=== PATIENT | male | born 1960 | race Caucasian/White ===

== ENCOUNTER 2025-05-02 15:40 | Emergency (ER) | payer BC, SELFPAY ==
--- NOTE | ~2025-05-02 | XR_ITS ---
EXAMINATION: XR CHEST CLINICAL INFORMATION: Coughing. Pneuomnia? COMPARISON: None available. TECHNIQUE: 2 views of the chest were obtained. FINDINGS: No significant abnormality is noted involving the heart, lungs, mediastinum, bony thorax or soft tissues. XR/XR chest 2V IMPRESSION: No acute disease Electronically signed by: Reagan Jordan MD 05/02/2025 04:15 PM [facility]
[2025-05-02 15:54] VITALS: BP 144/76; PULSE 85; RESP 20; TEMP 36.4; O2SAT 95; BMI 40.0
--- NOTE | 2025-05-02 15:59 | ED.GENADULT ---
HPI - General Adult General Chief complaint: Upper Respiratory Symptoms Stated complaint: ?URI/Fatigue Time Seen by Provider: 05/02/25 16:57 Source: patient Mode of arrival: ambulatory Limitations: no limitations History of Present Illness ED Provider: Leeroy Gallagher HPI narrative: 64 yold male healthy presents to the ED coughing, sore throatcongestion, sore throat, and headache. Related Data Previous Rx's ?Medication ?Instructions ?Recorded benzonatate 200 mg capsule 200 mg PO TID PRN cough #15 caps 05/02/25 naproxen 500 mg tablet 500 mg PO BID PRN pain #14 tabs 05/02/25 Allergies Allergy/AdvReac Type Severity Reaction Status Date / Time No Known Allergies Allergy Verified 05/02/25 15:57 Review of Systems Review of Systems: Coughing, runny nose nasal congestion headache sore throat Yes all other systems are reviewed and are negative [facility] Social History Social History Advance Directives: No Advance Directives Information Provided: No Physical Exam ED Vital Signs: Vital Signs - 24 hr 05/02/25 17:43 Temperature 97.5 F Pulse Rate 85 Respiratory Rate 20 Blood Pressure 144/76 H Pulse Oximetry 95 Oxygen Delivery Method Room Air BMI result Body Mass Index 40.0 Const General: cooperative, healthy appearing, comfortable, no acute distress, well developed, alert and awake Orientation/consciousness: patient oriented x3 HENMT Head: Yes normal to inspection, Yes No palpable skull fracture present, Yes normocephalic and Yes atraumatic Ears: hearing grossly normal bilaterally, external ears normal, TM's normal bilaterally, TM normal on the right, TM normal on the left, EAC's normal, mastoids normal and no periauricular adenopathy General nose exam: Normal external nose present and Normal nares present Face and sinus: Yes normal facial exam and Yes sinuses nontender Throat: Yes posterior oropharynx normal, Yes tonsils normal and Yes uvula midline Eyes General: appearance normal, both eyes and all related structures Neck Neck: Yes normal visual inspection, Yes full ROM, Yes no lymphadenopathy, Yes no meningeal signs, Yes trachea midline, Yes supple, No anterior neck swelling and No tender Chest Chest palpation & inspection: normal inspection of the chest and normal palpation of entire chest wall Resp Effort & Inspection: normal respiratory effort and able to speak in complete sentences Auscultation: clear to auscultation bilaterally Cardio Jugular venous distension: no JVD Heart sounds: S1 normal heart sound present and S2 normal heart sound present GI Inspection: Yes normal to inspection Palpation (GI): Soft to palpation, not firm, nontender, no guarding and not rigid General: Yes no CVA tenderness Back/Spine/Pelvis Back: no CVA tenderness and No back tenderness Skin General skin exam: no rashes or lesions noted, elasticity normal and turgor normal Neuro General: patient oriented x3, gait normal, tone normal, moves all extremities, Normal light touch and pain sensation, no meningeal signs, no focal motor deficits, CN's II-XI intact bilaterally and normal sensation to monofilament Extrem General: Yes normal to inspection, Yes full ROM and Yes capillary refill normal Psych Appearance: grossly normal, well kempt and not disheveled Course Course Course Narrative: rme: 64 YEAR MALE PRESENTS TO ED FOR FACIAL CONGESTION COUGHING RUNNY NOSE HEADACHE SORE THROAT SHORTNESS OF BREATH FOR THE PAST 4 DAYS. SARS X-RAY ORDERED Medical Decision Making Medical Decision Making [facility] Narrative: 64-year-old male presents to ED for URI symptoms. COVID influenza strep chest x-ray came back normal. Not suspecting hypoxia PE, pericarditis, [place], CHF, or any other life-threatening etiology. Patient is discharged with meds informed of Jolie's primary care provider. Patient explained worrisome Differential Diagnosis Differential Diagnoses: The differential diagnosis associated with the presentation includes (COVID influenza pneumonia) Admission/Observation Consideration of admission/observation: Escalation of care including admission/observation considered Lab Data [facility] Lab Attestation statement: I reviewed the patient's lab results. Labs: Lab Results 05/02/25 Range/Units 16:12 Influenza Type A (PCR) NEGATIVE (Negative) Influenza Type B (PCR) NEGATIVE (Negative) RSV RNA Qual (PCR) NEGATIVE (Negative) SARS-CoV-2 RNA (RT-PCR) NEGATIVE (Negative) S. pyogenes GrpA TRAUN Negative (Negative) Independent Interpretation I performed an independent interpretation of an: Plain X-Ray Radiology Impression Discussion of test interpretation with radiology: I have reviewed the radiologist's reading. Independent Historian Clinical information obtained from an independent historian. History obtained from or confirmed by: Other (Patient is) Prescription Management I considered prescription management with: Other Discharge Plan Discharge Clinical Impression: Upper respiratory infection Patient Disposition: Home, Self-Care Instructions: Upper Respiratory Infection (ED) Additional Instructions: Recommend follow up with primary care provider. Return to the ED immediately for any chest pain, shortness of breath, coughing up blood, leg swelling, calf pain, weakness, dizziness, or any other concerning symptoms. [address] [address] XRay Report Signed Patient: Saurav Geller MR#: [id number] : 1960 Acct:[id number] Age/Sex: 64 / M ADM Date: 05/02/25 Loc: HO.ED Attending Dr: Ordering Physician: Leeroy Gallagher Date of Service: 05/02/25 Procedure(s): XR chest 2V Accession Number(s): [id number] cc: Leeroy Gallagher; Physician,None ~ Reason for Exam: coUGHING. pNEUOMNIA? EXAMINATION: XR CHEST CLINICAL INFORMATION: Coughing. Pneuomnia? COMPARISON: None available. TECHNIQUE: 2 views of the chest were obtained. FINDINGS: No significant abnormality is noted involving the heart, lungs, mediastinum, bony thorax or soft tissues. XR/XR chest 2V IMPRESSION: No acute disease Electronically signed by: Reagan Jordan MD 05/02/2025 04:15 PM [facility] Prescriptions: New benzonatate 200 mg capsule 200 mg PO TID PRN (Reason: cough) Qty: 15 0RF naproxen 500 mg tablet 500 mg PO BID PRN (Reason: pain) Qty: 14 0RF Interventions: ED Discharge Assessment Last Done: 05/02/25 17:43 Discharge Date/Time: 05/02/25 17:44 Print Language: Kyrgyz
[2025-05-02 16:39] LABS: IDNOW Serial# 58CA691E; Strep A Nucleic Acid Negative (Negative)
[2025-05-02 16:54] LABS: Resp Syncy Virus RNA Qual PCR NEGATIVE (Negative); SARS COV2 PCR INHOUSE NEGATIVE (Negative)
[2025-05-02 17:43] VITALS: BP 144/76; PULSE 85; RESP 20; TEMP 36.4; O2SAT 95
== END 2025-05-02 17:44 | disposition home or self-care (01) ==
PROVIDERS: Physician Assistant; Emergency Provider Emergency Medicine
DX: J06.9 Acute upper respiratory infection, unspecified (principal); R53.83 Other fatigue; R05.9 Cough, unspecified
CPT/HCPCS: 71046; 87637; 87651; 99282; 99283

== ENCOUNTER → 2025-05-02 15:58 | Outpatient (BNV) | payer BC, SELFPAY | PROVIDERS: Visit Provider Radiology Diagnostic Radiology | DX: R05.9 Cough, unspecified (principal) | CPT/HCPCS: 71046 ==

== ENCOUNTER 2025-05-08 14:56 | Emergency (ER) | payer BC, SELFPAY ==
--- NOTE | ~2025-05-08 | XR_ITS ---
EXAMINATION: XR CHEST CLINICAL INFORMATION: cough COMPARISON: 05/02/2025. TECHNIQUE: 2 views of the chest were obtained. FINDINGS: The cardiac, hilar, and mediastinal contours are normal. The lungs are clear bilaterally. There is no pneumothorax or pleural effusion. There is no focal osseous or soft tissue abnormality. XR/XR chest 2V IMPRESSION: No active pulmonary disease. Electronically signed by: Jarocho Saul MD 05/08/2025 04:05 PM [facility]
--- NOTE | 2025-05-08 15:00 | ECG_ITS ---
Test Reason : SOB Blood Pressure : */* mmHG Vent. Rate : 81 BPM Atrial Rate : 81 BPM P-R Int : 160 ms QRS Dur : 86 ms QT Int : 360 ms P-R-T Axes : 52 49 25 degrees QTcB Int : 418 ms Normal sinus rhythm Normal ECG No previous ECGs available Referred By: Yumiko Gilbert Electronically Signed By: REMA GUADALUPE
[2025-05-08 15:06] VITALS: BP 148/83; PULSE 80; RESP 16; TEMP 36.6; O2SAT 96; BMI 39.8
--- NOTE | 2025-05-08 15:16 | ED_ITS ---
HPI - General Adult General Chief complaint: Upper Respiratory Symptoms Stated complaint: Chest Pain, Fatigue, Tired, Trouble Eating, Conges Time Seen by Provider: 05/08/25 20:16 Source: patient Limitations: no limitations History of Present Illness ED Provider: Saray Dwyer PA-C HPI narrative: 64-year-old male presents with ongoing cough and cold symptoms x6 days. Patient states he has been having a productive cough expelling green sputum at times, nasal congestion, fatigue, and his cough has been repetitive and dry at times as well. Denies history of asthma or COPD, he does not smoke marijuana or tobacco. Denies headache, fever chills, no GI symptoms. No sick contacts with similar symptoms. Patient was seen here 6 days ago, with similar presentation, his symptoms are not improving. Related Data Previous Rx's ?Medication ?Instructions ?Recorded benzonatate 200 mg capsule 200 mg PO TID PRN cough #15 caps 05/02/25 naproxen 500 mg tablet 500 mg PO BID PRN pain #14 t abs 05/02/25 albuterol sulfate 90 mcg/actuation 2 puff inhalation Q 4-6H PRN 05/08/25 aerosol inhaler (Ventolin HFA) bronchospasm #8.5 grams benzonatate 200 mg capsule 200 mg PO TID PRN cough #15 caps 05/08/25 Allergies Allergy/AdvReac Type Severity Reaction Status Date / Time No Known Allergies Allergy Verified 05/08/25 15:09 Review of Systems 2 Review of Systems: Yes all other systems are reviewed and are negative Constitutional: Constitutional: Denies chills, Reports fatigue and Denies fever(s) ENT: Reports nasal congestion Cardiovascular: Cardiovascular: Denies chest pain and Denies dyspnea Respiratory: Respiratory: Reports chest congestion, Reports cough, Denies dyspnea and Denies wheezing Gastrointestinal: Gastrointestinal: Denies abdominal pain, Denies diarrhea, Denies nausea and Denies vomiting Endocrine: Endocrine: Reports fatigue Allergic/Immunologic: Allergic/Immunologic: Denies wheezing PMFSH Past Medical History Attestation statement: The following information was validated with the patient. Social History Social History Advance Directives: No Advance Directives Information Provided: No Do you have a plan to hurt others: No Plan Physical Exam ED Vital Signs: Vital Signs - 24 hr 05/08/25 15:06 Temperature 97.8 F Pulse Rate 80 Respiratory Rate 16 Blood Pressure 148/83 H Pulse Oximetry 96 Oxygen Delivery Method Room Air BMI result Body Mass Index 39.8 Const Other: Alert well-appearing Orientation/consciousness: patient oriented x3 Resp Other: Lungs clear to auscultation no wheezing, bronchospasm type cough at times Cardio Other: Normal peripheral perfusion Skin Other: Warm dry no rash Neuro General: patient oriented x3, gait normal, no focal motor deficits and CN's II- XI intact bilaterally Psych Other: Cooperative Course Course Course Narrative: Rapid medical examination performed in triage by Yumiko Gilbert PA-C: Patient is a 64 year old male presenting to the emergency department with cough. Detailed physical exam and review of systems are deferred to the mail handler assistant. Imaging and swabs ordered. Patient placed back in the waiting room pending room availability and results. Medications Administered Discontinued Medications Generic Name Dose Route Start Last Admin Trade Name Freq PRN Reason Stop Dose Admin Albuterol Sulfate 2 puff 05/08/25 20:35 05/08/25 20:53 Albuterol Sulfate 90 Mcg 8 Gm Inhaler INHALE 05/08/25 20:36 2 puff ONCE ONE Administration Benzonatate 200 mg 05/08/25 20:35 05/08/25 20:53 Benzonatate 100 Mg Capsule PO 05/08/25 20:36 200 mg ONCE ONE Administration Medical Decision Making Medical Decision Making [facility] Narrative: 64-year-old male presents with ongoing cough and cold symptoms x6 days. Patient states he has been having a productive cough expelling green sputum at times, nasal congestion, fatigue, and his cough has been repetitive and dry at times as well. Denies history of asthma or COPD, he does not smoke marijuana or tobacco. Denies headache, fever chills, no GI symptoms. No sick contacts with similar symptoms. Patient was seen here 6 days ago, with similar presentation, his symptoms are not improving. No chronic issues History: Per patient I have considered the following differential diagnoses: Viral syndrome, bronchitis, pneumonia, bronchospasm, Plan: Patient here with ongoing viral syndrome. I explained to the patient that he can expect his cough to last for weeks. His exam was benign, his assessment is negative, we will treat the bronchospasm. ACS was considered from triage, although the patient is not complaining of shortness of breath or chest pain. In addition to screening labs, cardiac enzymes EKG obtained and of course of chest x-ray which is negative for pneumonia. I have independently reviewed the following tests: Labs: slight leukocytosis, not anemic, no electrolyte abnormality, troponin less than 2.7, viral panel neg EKG: Normal sinus rhythm, rate of 81, no ischemic changes no ectopy Chest x-ray:TECHNIQUE: 2 views of the chest were obtained. FINDINGS: The cardiac, hilar, and mediastinal contours are normal. The lungs are clear bilaterally. There is no pneumothorax or pleural effusion. There is no focal osseous or soft tissue abnormality. XR/XR chest 2V IMPRESSION: No active pulmonary disease. Differential Diagnosis Differential Diagnoses: The differential diagnosis associated with the presentation includes See [facility] Admission/Observation Consideration of admission/observation: Escalation of care including admission/observation considered Not applicable Lab Data [facility] Lab Attestation statement: I reviewed the patient's lab results. 05/08/25 18:45 05/08/25 18:45 Labs: Lab Results 05/08/25 05/08/25 Range/Units 16:04 18:45 WBC 12.8 H (4.8-10.8) X10*3/uL RBC 5.01 (4.60-5.80) X10*6/uL Hgb 16.4 (14.0-18.0) g/dl Hct 47.1 (42.0-52.0) % MCV 94.0 (80.0-98.0) fL MCH 32.7 (27.0-33.0) pg MCHC 34.8 (31.0-36.0) g/dl RDW 12.6 (11.0-16.0) % Plt Count 190 (160-400) X10*3/uL MPV 11.9 (9.4-12.4) fL Immature Gran % (Auto) 0.4 (0.0-0.4) % Neut % (Auto) 54.4 (45-73) % Lymph % (Auto) 37.1 (20-40) % [place] % (Auto) 5.5 (2-11) % Eos % (Auto) 2.0 (0-4) % Baso % (Auto) 0.6 (0-2) % Lymph # (Auto) 4.8 (1.2-4.9) X10*3/uL [place] # (Auto) 0.7 (0.1-1.2) X10*3/uL Eos # (Auto) 0.3 (0.0-0.4) X10*3/uL Baso # (Auto) 0.1 (0.0-0.2) X10*3/uL Abs Immat Gran (auto) 0.05 H (0.00-0.03) X10*3/uL Absolute Neuts (auto) 7.0 (2.0-8.3) x10*3/uL Absolute Nucleated RBC 0.000 (0.0-0.012) X10*3/uL Nucleated RBC % (auto) 0.0 (0.0-0.2) /100WBC Sodium 143 (135-145) mmol/L Potassium 4.2 (3.3-5.1) mmol/L Chloride 108 (96-108) mmol/L Carbon Dioxide 23 (22-29) mmol/L Anion Gap 16 (12-20) BUN 18 H (9-16) mg/dL Creatinine 0.99 (0.5-1.4) mg/dL Estim Creat Clear Calc 102.0 Estimated GFR > 60 Random Glucose 165 H (60-115) mg/dL Calcium 10.0 (8.4-10.2) mg/dL Magnesium 2.0 (1.6-2.6) mg/dL Total Bilirubin 0.7 (0.0-1.0) mg/dL AST 55 H (5-37) U/L ALT 75 H (0-40) U/L Alkaline Phosphatase 62 (39-117) U/L Troponin I High Sens < 2.7 (<3.5-35.0) ng/L Total Protein 8.1 H (6.5-8.0) g/dL Albumin 4.7 (3.5-5.0) g/dL Influenza Type A (PCR) NEGATIVE (Negative) Influenza Type B (PCR) NEGATIVE (Negative) RSV RNA Qual (PCR) NEGATIVE (Negative) SARS-CoV-2 RNA (RT-PCR) NEGATIVE (Negative) Independent Interpretation I performed an independent interpretation of an: EKG Radiology Impression Discussion of test interpretation with radiology: I have reviewed the radiologist's reading. Discharge Plan Discharge Clinical Impression: Viral infection, Bronchospasm Patient Disposition: Home, Self-Care Instructions: Viral Syndrome (ED), Bronchospasm (ED) Additional Instructions: All of your screening labs including a cardiac enzymes were normal. We repeated the viral panel you were tested for COVID influenza and RSV was negative. There were no concerning changes on the EKG in the chest x-ray is clear. It is very common to have persisting cough and cold symptoms with the respiratory viruses that are circulating within the community. Your symptoms may last for up to 5-6 weeks. Use the Benzonate as needed for cough. Use the albuterol as needed for cough. Follow up with your primary care provider as needed Prescriptions: New benzonatate 200 mg capsule 200 mg PO TID PRN (Reason: cough) Qty: 15 0RF albuterol sulfate [Ventolin HFA] 90 mcg/actuation HFA aerosol inhaler 2 puff inhalation Q4-6H PRN (Reason: bronchospasm) Qty: 8.5 0RF No Action benzonatate 200 mg capsule 200 mg PO TID PRN (Reason: cough) Qty: 15 0RF naproxen 500 mg tablet 500 mg PO BID PRN (Reason: pain) Qty: 14 0RF Interventions: ED Discharge Assessment Last Done: 05/08/25 20:55 Discharge Date/Time: 05/08/25 20:56 Print Language: U[place]ayan
[2025-05-08 16:52] LABS: Resp Syncy Virus RNA Qual PCR NEGATIVE (Negative); SARS COV2 PCR INHOUSE NEGATIVE (Negative)
[2025-05-08 19:01] LABS: MANUAL DIFF FLAG NO
[2025-05-08 19:11] LABS: Hematocrit 47.1 % (42.0-52.0); Hemoglobin 16.4 g/dl (14.0-18.0); Imm Gran Abs Auto 0.05 X10*3/uL (0.00-0.03); Imm Gran Pct Auto 0.4 % (0.0-0.4); Lymphocytes Absolute Auto 4.8 X10*3/uL (1.2-4.9); Mean Corpuscular HGB Conc 34.8 g/dl (31.0-36.0); Mean Corpuscular Hemoglobin 32.7 pg (27.0-33.0); Mean Corpuscular Volume 94.0 fL (80.0-98.0); NRBC Abs Auto 0.000 X10*3/uL (0.0-0.012); NRBC Pct Auto 0.0 /100WBC (0.0-0.2); Platelet Count 190 X10*3/uL (160-400); Red Blood Count 5.01 X10*6/uL (4.60-5.80); White Blood Count 12.8 X10*3/uL (4.8-10.8)
[2025-05-08 19:32] LABS: Alanine Aminotransferase 75 U/L (0-40); Albumin Level 4.7 g/dL (3.5-5.0); Alkaline Phosphatase 62 U/L (39-117); Anion Gap 16 (12-20); Aspartate Amino Transferase 55 U/L (5-37); Blood Urea Nitrogen 18 mg/dL (9-16); Calcium 10.0 mg/dL (8.4-10.2); Carbon Dioxide 23 mmol/L (22-29); Chloride 108 mmol/L (96-108); Creatinine Clr Calc Pharmacy 102.0; Estimated Glomerular Filt Rate > 60; Magnesium 2.0 mg/dL (1.6-2.6); Potassium 4.2 mmol/L (3.3-5.1); Sodium 143 mmol/L (135-145); Total Protein 8.1 g/dL (6.5-8.0)
[2025-05-08 19:42] LABS: Troponin-I High Sensitivity < 2.7 ng/L (<3.5-35.0)
[2025-05-08] MEDS: Albuterol Sulfate 90 MCG 8 GM INHALER 2 PUFF INHALE (20:53)
[2025-05-08 20:55] VITALS: BP 148/83; PULSE 80; RESP 16; TEMP 36.6; O2SAT 96
== END 2025-05-08 20:56 | disposition home or self-care (01) ==
PROVIDERS: Physician Assistant Medical; Emergency Provider Emergency Medicine
DX: B34.9 Viral infection, unspecified (principal); J98.01 Acute bronchospasm; R07.89 Other chest pain; R05.9 Cough, unspecified; R06.02 Shortness of breath; Z03.818 Encounter for observation for suspected exposure to other biological agents ruled out; Z79.899 Other long term (current) drug therapy
CPT/HCPCS: 36415; 71046; 80053; 83735; 84484; 85025; 87637; 93005; 99283

== ENCOUNTER → 2025-05-08 15:00 | Outpatient (BNV) | payer BC, SELFPAY | PROVIDERS: Visit Provider Internal Medicine | DX: R06.02 Shortness of breath (principal) | CPT/HCPCS: 93010 ==

== ENCOUNTER → 2025-05-08 15:17 | Outpatient (BNV) | payer BC, SELFPAY | PROVIDERS: Visit Provider Radiology Diagnostic Radiology | DX: R05.9 Cough, unspecified (principal) | CPT/HCPCS: 71046 ==